=== PATIENT | female | born 1980 | race Caucasian/White ===

== ENCOUNTER → 2016-12-04 | Emergency (ER) | payer OTHER ==
[~2016-12-04] VITALS: Ht 160 cm; Wt 110.6 kg
[~2016-12-04] MED LIST: ALBUTEROL2.5 MG/3 M IH; AMOXICILLIN875 MG PO; Ascorbic Acid,Ester- PO; DELTASONE20 M1 PO; DOLOBID500 MG PO; GLUCOPHAGE500 MG PO; Lasix PO; Ortho Tri-Cyclen 28, PO; PROVENTIL,2.5 MG/3 M IH; Proventil,Ventolin H IH; Symbicort 160-4.5 mc IH; Symbicort 80-4.5 mcg IH; Tylenol Extra Streng PO; Vicodin,Lortab 5/500 PO; Vicodin,Norco 5/325 PO; ZITHROMAX Z-PA250 MG PO
[2016-12-05 00:46] VITALS: BP 167/97
== END | disposition home or self-care (01) ==
LOC: EXP 23:27 → EME 23:27
PROC: 0H97XZZ Drainage of Abdomen Skin, External Approach (ICD-10-PCS; principal; 2016-12-04)
DX: L02.211 Cutaneous abscess of abdominal wall (principal); F17.200 Nicotine dependence, unspecified, uncomplicated; E11.9 Type 2 diabetes mellitus without complications
CPT/HCPCS: 99281; 99284; S0020